=== PATIENT | male | born 1995 | race Caucasian/White ===

== ENCOUNTER 2020-04-06 14:06 | Outpatient (REF) | payer OTHER, SELFPAY ==
[2020-04-06 16:28] LABS: MANUAL DIFF FLAG NO
[2020-04-06 16:32] LABS: Basophils Percent Auto 0.4 % (0-2); Eosinophils Absolute Auto 0.1 X10*3/uL (0.0-0.4); Eosinophils Percent Auto 1.4 % (0-4); Hematocrit 50.3 % (42-52); Hemoglobin 17.1 g/dl (14.0-18.0); Imm Gran Abs Auto 0.01 X10*3/uL (0.00-0.03); Imm Gran Pct Auto 0.1 % (0.0-0.4); Lymphocytes Absolute Auto 2.3 X10*3/uL (1.2-4.9); Lymphocytes Percent Auto 29.1 % (20-40); Mean Corpuscular Hemoglobin 28.5 pg (27.0-33.0); Mean Corpuscular Volume 83.7 fL (80-98); Mean Platelet Volume 8.8 fL (9.4-12.4); Monocytes Absolute Auto 0.6 X10*3/uL (0.1-1.2); Monocytes Percent Auto 7.4 % (2-11); Neutrophils Absolute Auto 4.8 X10*3/uL (2.0-8.3); Neutrophils Percent Auto 61.6 % (45-73); Platelet Count 245 X10*3/uL (160-400); Red Blood Count 6.01 X10*6/uL (4.60-5.80); Red Cell Distribution Width 12.9 % (11.0-16.0); White Blood Count 7.8 X10*3/uL (4.8-10.8)
[2020-04-06 16:56] LABS: Anion Gap 12 (12-20); Blood Urea Nitrogen 16 mg/dL (9-16); Carbon Dioxide 30 mmol/L (22-29); Chloride 102 mmol/L (96-108); Estimated Glomerular Filt Rate > 60; Glucose Random 81 mg/dL (60-115); Potassium 4.6 mmol/l (3.3-5.1); Sodium 139 mmol/L (135-145)
[2020-04-06 17:18] LABS: TSH reflex Free T4 1.76 mIU/mL (0.32-4.0)
[2020-04-06 17:30] LABS: Folate 9.2 ng/mL (> or = 4.0); Vitamin B12 891 pg/mL (200-900)
[2020-04-08 09:07] LABS: Lyme Abs Screen <0.90 index
== END 2020-04-06 14:07 | disposition home or self-care (01) ==
LOC: HO.HMGCLDS 14:06
PROVIDERS: PCP Nurse Practitioner Family; Visit Provider Nurse Practitioner Family
DX: R20.0 Anesthesia of skin (principal); R20.2 Paresthesia of skin
CPT/HCPCS: 36415; 80048; 82306; 82607; 82746; 84443; 85025; 86618

== ENCOUNTER 2020-07-25 09:41 | Outpatient (REF) | payer OTHER, SELFPAY ==
[2020-07-25 11:34] LABS: MANUAL DIFF FLAG NO
[2020-07-25 11:48] LABS: Basophils Percent Auto 0.4 % (0-2); Eosinophils Absolute Auto 0.1 X10*3/uL (0.0-0.4); Eosinophils Percent Auto 1.6 % (0-4); Hematocrit 47.2 % (42-52); Hemoglobin 16.6 g/dl (14.0-18.0); Imm Gran Abs Auto 0.01 X10*3/uL (0.00-0.03); Imm Gran Pct Auto 0.1 % (0.0-0.4); Lymphocytes Percent Auto 35.9 % (20-40); Mean Corpuscular HGB Conc 35.2 g/dl (31.0-36.0); Mean Corpuscular Hemoglobin 28.8 pg (27.0-33.0); Mean Corpuscular Volume 81.9 fL (80-98); Mean Platelet Volume 9.1 fL (9.4-12.4); Monocytes Absolute Auto 0.5 X10*3/uL (0.1-1.2); Neutrophils Absolute Auto 4.6 X10*3/uL (2.0-8.3); Platelet Count 232 X10*3/uL (160-400); Red Blood Count 5.76 X10*6/uL (4.60-5.80); Red Cell Distribution Width 12.8 % (11.0-16.0); White Blood Count 8.3 X10*3/uL (4.8-10.8)
[2020-07-25 12:09] LABS: Alanine Aminotransferase 34 U/L (0-40); Albumin Level 4.6 g/dL (3.5-5.0); Alkaline Phosphatase 72 U/L (39-117); Anion Gap 15 (12-20); Aspartate Amino Transferase 22 U/L (5-37); Bilirubin Total 0.5 mg/dL (0.0-1.0); Blood Urea Nitrogen 20 mg/dL (9-16); Calcium 9.3 mg/dL (8.4-10.2); Carbon Dioxide 26 mmol/L (22-29); Chloride 102 mmol/L (96-108); Cholesterol 229 mg/dL; Estimated Glomerular Filt Rate > 60; Glucose Fasting 77 mg/dL (60-99); HDL Cholesterol 42 mg/dL; LDL Cholesterol Calculated 139 mg/dl; Potassium 3.9 mmol/L (3.3-5.1); Sodium 139 mmol/L (135-145); Total Protein 7.7 g/dL (6.5-8.0); Triglycerides 241 mg/dL
[2020-07-25 12:14] LABS: TSH reflex Free T4 5.03 uIU/mL (0.32-4.0)
[2020-07-25 12:47] LABS: Folate 5.3 ng/mL (> or = 4.0); Vitamin B12 484 pg/mL (200-900)
[2020-07-25 13:27] LABS: Free T4 (Free Thyroxine) 0.94 ng/dL (0.71-1.85)
[2020-07-29 14:16] LABS: Vitamin B6 14.2 ng/mL (2.1-21.7)
== END 2020-07-25 09:42 | disposition home or self-care (01) ==
LOC: HO.HMGCLDS 09:41
PROVIDERS: PCP Nurse Practitioner Family; Visit Provider Nurse Practitioner Family
DX: R20.0 Anesthesia of skin (principal); R20.2 Paresthesia of skin; E78.5 Hyperlipidemia, unspecified; R79.89 Other specified abnormal findings of blood chemistry
CPT/HCPCS: 36415; 80053; 80061; 82607; 82746; 84207; 84439; 84443; 85025

== ENCOUNTER 2020-12-14 12:09 | Outpatient (REF) | payer OTHER, SELFPAY ==
--- NOTE | ~2020-12-14 | XR_ITS ---
EXAMINATION: XR CERVICAL SPINE CLINICAL INFORMATION: Anesthesia of skin. COMPARISON: None TECHNIQUE: 3 views of the cervical spine were obtained. FINDINGS: Mild straightening of the normal cervical lordosis, which may be positional or related to muscular spasm. No acute fracture or subluxation. No loss of vertebral body or intervertebral disc height. Normal atlantoaxial alignment. No lytic or blastic osseous lesion. Unremarkable prevertebral soft tissues. XR/XR cervical spine 2V IMPRESSION: Mild straightening of the normal cervical lordosis, which may be positional or related to muscular spasm.
[2020-12-14 14:47] LABS: Cholesterol 257 mg/dL; HDL Cholesterol 40 mg/dL; LDL Cholesterol Calculated 161 mg/dl; Triglycerides 280 mg/dL
[2020-12-14 14:54] LABS: TSH reflex Free T4 4.07 uIU/mL (0.32-4.0)
[2020-12-14 15:44] LABS: Free T4 (Free Thyroxine) 0.99 ng/dL (0.71-1.85)
[2020-12-15 09:21] LABS: Thyroid Peroxidase Antibodies <1 IU/mL (<9)
== END 2020-12-14 12:10 | disposition home or self-care (01) ==
LOC: HO.HMGCLDS 12:09
PROVIDERS: PCP Nurse Practitioner Family; Visit Provider Nurse Practitioner Family
DX: R20.0 Anesthesia of skin (principal); R20.2 Paresthesia of skin; R79.89 Other specified abnormal findings of blood chemistry; E78.5 Hyperlipidemia, unspecified
CPT/HCPCS: 36415; 72040; 80061; 84439; 84443; 86376

== ENCOUNTER 2021-07-07 10:19 | Outpatient (REF) | payer OTHER, SELFPAY ==
[2021-07-07 11:23] LABS: MANUAL DIFF FLAG NO
[2021-07-07 11:32] LABS: Appearance Urine CLEAR; Color Urine YELLOW; Glucose Urine UA NEG (NEG); Leukocyte Esterase Urine NEG (NEG); Nitrite Urine NEG (NEG); Specific Gravity - Urine 1.025 (1.005-1.025); UACC Culture Trigger NO; Urine Blood TRACE (NEG); Urine Ketones NEG (NEG); Urine Protein NEG (NEG-TRACE)
[2021-07-07 11:34] LABS: Basophils Percent Auto 0.4 % (0-2); Eosinophils Absolute Auto 0.2 X10*3/uL (0.0-0.4); Eosinophils Percent Auto 2.1 % (0-4); Hematocrit 48.3 % (42.0-52.0); Hemoglobin 16.4 g/dl (14.0-18.0); Imm Gran Abs Auto 0.02 X10*3/uL (0.00-0.03); Imm Gran Pct Auto 0.2 % (0.0-0.4); Lymphocytes Absolute Auto 2.6 X10*3/uL (1.2-4.9); Lymphocytes Percent Auto 31.7 % (20-40); Mean Corpuscular Hemoglobin 27.7 pg (27.0-33.0); Mean Corpuscular Volume 81.6 fL (80.0-98.0); Mean Platelet Volume 9.3 fL (9.4-12.4); Monocytes Absolute Auto 0.4 X10*3/uL (0.1-1.2); Monocytes Percent Auto 5.3 % (2-11); Neutrophils Absolute Auto 4.9 x10*3/uL (2.0-8.3); Neutrophils Percent Auto 60.3 % (45-73); Platelet Count 240 X10*3/uL (160-400); Red Blood Count 5.92 X10*6/uL (4.60-5.80); Red Cell Distribution Width 13.2 % (11.0-16.0); White Blood Count 8.1 X10*3/uL (4.8-10.8)
[2021-07-07 12:01] LABS: Mucus Urine TRACE /LPF; RBC Urine 0-2 /HPF (0); WBC Urine 0 /HPF (0-4)
[2021-07-07 12:12] LABS: Alanine Aminotransferase 52 U/L (0-40); Albumin Level 4.3 g/dL (3.5-5.0); Alkaline Phosphatase 78 U/L (39-117); Anion Gap 14 (12-20); Aspartate Amino Transferase 28 U/L (5-37); Bilirubin Total 0.6 mg/dL (0.0-1.0); Blood Urea Nitrogen 19 mg/dL (9-16); Calcium 9.7 mg/dL (8.4-10.2); Carbon Dioxide 25 mmol/L (22-29); Chloride 104 mmol/L (96-108); Cholesterol 251 mg/dL; Estimated Glomerular Filt Rate > 60; Glucose Fasting 85 mg/dL (60-99); HDL Cholesterol 39 mg/dL; LDL Cholesterol Calculated 161 mg/dl; Potassium 4.2 mmol/L (3.3-5.1); Sodium 139 mmol/L (135-145); Total Protein 7.4 g/dL (6.5-8.0); Triglycerides 258 mg/dL
[2021-07-07 12:35] LABS: TSH reflex Free T4 4.26 uIU/mL (0.32-4.0)
[2021-07-07 12:49] LABS: Folate 6.5 ng/mL (> or = 4.0); Vitamin B12 538 pg/mL (200-900)
[2021-07-07 12:57] LABS: Reflex LDLD? No
[2021-07-07 13:30] LABS: Free T4 (Free Thyroxine) 0.89 ng/dL (0.71-1.85)
== END 2021-07-07 10:20 | disposition home or self-care (01) ==
LOC: HO.HMGCLDS 10:19
PROVIDERS: Absent Provider Pediatrics; PCP Nurse Practitioner Family; Visit Provider Nurse Practitioner Family
DX: E78.5 Hyperlipidemia, unspecified (principal); R20.0 Anesthesia of skin; R20.2 Paresthesia of skin
CPT/HCPCS: 36415; 80053; 80061; 81001; 82607; 82746; 84439; 84443; 85025